=== PATIENT | male | born 1945 | race Two or more races ===

== ENCOUNTER 2018-12-19 15:31 | Emergency (ER) | payer OTHER ==
[~2018-12-19] VITALS: Ht 182.9 cm; Wt 89.4 kg
--- NOTE | 2018-12-19 15:36 | NUR ---
GRETEL FROM HOME FOR R LEG PAIN X 10 DAYS; PT AAOX4, PT ON MONITOR, VSS, NAD NOTED, PENDING MD SPENCE
[2018-12-19] MEDS ORDERED: ONDANSETRON HCL/PF 4 MG/2 ML VIAL IVP ONE (16:00)
[2018-12-19] MEDS ORDERED: ENOXAPARIN SODIUM 80 MG/0.8 ML DISP.SYRIN SQ ONE ×2 (16:00→16:13)
[2018-12-19] MEDS ORDERED: MORPHINE SULFATE INJ 2 MG/ML DISP.SYRIN IV ONE ×2 (16:00→21:00)
[2018-12-19] MEDS ORDERED: ONDANSETRON HCL/PF 4 MG/2 ML VIAL ONE (16:13)
[2018-12-19] MEDS ORDERED: MORPHINE SULFATE INJ 4 MG/ML DISP.SYRIN ONE ×2 (16:13→20:45)
[2018-12-19 16:15] LABS: BASOPHILS # (AUTO) 0.1 /CMM (0.0-0.2); BASOPHILS % (AUTO) 0.9 % (0.0-2.0); EOSINOPHILS % (AUTO) 0.3 % (0.0-6.0); HEMATOCRIT 41 % (39-51); HEMOGLOBIN 14.6 g/dL (13.5-17.5); LYMPHOCYTES # (AUTO) 1.6 /CMM (0.8-4.8); LYMPHOCYTES % (AUTO) 18.9 % (20.0-44.0); MEAN CORPUSCULAR HGB CONC 36 g/dl (31.0-36.0); MEAN CORPUSCULAR VOLUME 89 fL (80-96); MONOCYTES # (AUTO) 0.4 /CMM (0.1-1.30); MONOCYTES % (AUTO) 4.8 % (2.0-12.0); NEUTROPHILS # (AUTO) 6.4 /CMM (1.8-8.9); NEUTROPHILS % (AUTO) 75.1 % (43.0-81.0); PLATELET COUNT (AUTO) 236 /CMM (150-450); RED BLOOD CELL COUNT(AUTO) 4.61 MIL/uL (4.5-6.0); WHITE BLOOD COUNT (AUTO) 8.5 K/uL (4.3-11.0)
[2018-12-19 16:26] LABS: CALCIUM, SERUM 9.4 mg/dL (8.5-10.1); CARBON DIOXIDE 33 mmol/L (21-32); CHLORIDE 103 mmol/L (98-107); CREATININE 0.9 mg/dL (0.6-1.3); GLUCOSE 127 mg/dL (74-106); SODIUM SERUM 140 mmol/L (136-145); UREA NITROGEN, BLOOD 14 mg/dL (7-18)
--- NOTE | 2018-12-19 17:34 | NUR ---
CALLED [facility] DISCLOSURE OF HEALTH INFORMATION STAT HOT LINE, LEFT A VOICEMAIL.
--- NOTE | 2018-12-19 18:09 | NUR ---
REPORT TO NICOLE BARTHOLOMEW. PT AWAITING TRANSFER TO FLOOR.
[2018-12-19 18:30] VITALS: BP 130/63
[2018-12-19 18:47] LABS: BILIRUBIN,DIRECT 0.1 mg/dL (0.0-0.2); BILIRUBIN,TOTAL 0.5 mg/dL (0.2-1.0)
[2018-12-19] MEDS ORDERED: ACETAMINOPHEN 325 MG TABLET PO PRN (19:00)
[2018-12-19] MEDS ORDERED: MAG HYDROX/AL HYDROX/SIMETH 30 ML UDC PO PRN (19:00)
[2018-12-19] MEDS ORDERED: ZOLPIDEM TARTRATE 5 MG TABLET PO PRN (19:00)
[2018-12-19] MEDS ORDERED: MAGNESIUM HYDROXIDE 30 ML UDC PO PRN (19:00)
[2018-12-19] MEDS ORDERED: Z GUARD REMEDY 2 OZ OINT TP PRN (19:00)
[2018-12-19] MEDS ORDERED: ONDANSETRON HCL/PF 4 MG/2 ML VIAL IVP PRN (19:00)
[2018-12-19] MEDS ORDERED: HYDROCODONE/APAP 5/325MG 1 EACH TABLET PO PRN (19:00)
[2018-12-19] MEDS ORDERED: *INSULIN REGULAR(HUMULIN R)HUM 100 UNIT/ML VIAL SQ PRN (19:30)
[2018-12-19] MEDS ORDERED: MORPHINE SULFATE INJ 2 MG/ML DISP.SYRIN IV PRN (19:30)
[2018-12-19] MEDS ORDERED: PANTOPRAZOLE 40 MG TABLET.DR PO ONE (19:30)
[2018-12-19] MEDS ORDERED: INSULIN REGULAR, HUMAN 100 UNIT/ML 3 ML VIAL SQ PRN (19:30)
[2018-12-19] MEDS ORDERED: DEXTROSE 50%-WATER 50 ML DISP.SYRIN IV PRN (19:30)
--- NOTE | 2018-12-19 20:00 | NUR ---
PT TRANSPORTED TO 2ND FLOOR VIA ACLS PROTOCOL
--- NOTE | 2018-12-19 20:31 | NUR ---
PER NURSING SUP'S ORDER, PT WAS BROUGHT TO BACK TO ED BY INPATIENT NURSE D/T INSURANCE ISSUES. DR. SCHAEFER ASSUMED CARE AT THIS TIME. ALL INPATIENT ORDERS D/C'D.
[2018-12-19] MEDS ORDERED: BLOOD SUGAR DIAGNOSTIC 1 EACH STRIP VI SCH (22:00)
--- NOTE | 2018-12-19 22:10 | NUR ---
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 PT WILL BE TRANSFERRED TO MED SURG BED 4230. NUMBER FOR REPORT EXT [id number]. WILL CALL BACK WITH TRANSPORTATION INFORMATION
--- NOTE | 2018-12-19 22:43 | NUR ---
UPDATED PT REGARDING TRANSFER INFO TO [facility], PT STATES "IF THE TRANSPORT IS NOT HERE WITHIN 15MINS, I WILL LEAVE AGAINST MEDICAL ADVICE", UPDATED PT THAT TRANSPORT'S ETA IS 45, PT INSISTS ON LEAVING, PER PT, HE WILL CALL FOR A RIDE. PT SIGNED AMA FORM. PT AWARE OF RISKS, ASSISTED PT TO WAITING ROOM TO WAIT FOR RIDE. PT LEFT IN STABLE CONDITION.
--- NOTE | 2018-12-19 22:50 | NUR ---
PT LEFT THE FACILITY IN STABLE CONDITION, ASSISTED TO CAR, NAD NOTED.
--- NOTE | 2018-12-19 23:11 | NUR ---
UNABLE TO DEPART PATIENT AGAINST MEDICAL ADVICE. PT WAS PREVIOUSLY DEPARTED FOR INPATIENT ADMISSION, UNABLE TO UNDO DEPART STATUS. PT LEFT AMA, SIGNED PAPERWORK, AWARE OF RISKS OF LEAVING AMA.
== END 2018-12-19 19:38 | disposition other institution (70) ==
LOC: ER 15:34
DX: I96 Gangrene, not elsewhere classified (principal); E11.9 Type 2 diabetes mellitus without complications; I10 Essential (primary) hypertension; E78.00 Pure hypercholesterolemia, unspecified; K21.9 Gastro-esophageal reflux disease without esophagitis; Z96.649 Presence of unspecified artificial hip joint
CPT/HCPCS: 36415; 71045; 80048; 82247; 82248; 83605 ×2; 84484; 85025; 85730; 87040 ×2; 87081; 93005; 93926; 93971; 96372; 96374; 96375; 96376; 99285; J1650; J1815 ×2; J2270 ×2; J2405

== ENCOUNTER 2019-03-09 17:48 | Inpatient (IN) | payer OTHER ==
[~2019-03-09] VITALS: Ht 182.9 cm; Wt 86.2 kg
[2019-03-09] MEDS ORDERED: DEXTROSE 10% IN WATER 250 ML BAG IV ONE ×3 (17:59→20:05)
[2019-03-09] MEDS ORDERED: DEXTROSE 50%-WATER 50 ML DISP.SYRIN ONE ×3 (17:59→20:05)
[2019-03-09] MEDS ORDERED: TAMS-12 PO (18:08)
[2019-03-09] MEDS ORDERED: DILT-3 PO (18:08)
[2019-03-09] MEDS ORDERED: ESCI10TA PO (18:08)
[2019-03-09] MEDS ORDERED: POTA-88 PO (18:08)
[2019-03-09] MEDS ORDERED: DULO30CA52 PO (18:08)
[2019-03-09] MEDS ORDERED: BLOO-668 IN (18:08)
[2019-03-09] MEDS ORDERED: ALBU8.5H8 IH (18:08)
[2019-03-09] MEDS ORDERED: METO-358 PO (18:08)
[2019-03-09] MEDS ORDERED: LOSA100T31 PO (18:08)
[2019-03-09] MEDS ORDERED: INSU100I26 SQ (18:08)
[2019-03-09] MEDS ORDERED: ROSU40TA23 PO (18:08)
[2019-03-09] MEDS ORDERED: CLOP75TA15 PO (18:08)
[2019-03-09] MEDS ORDERED: INSU100I4 SQ (18:08)
[2019-03-09] MEDS ORDERED: OXYC30TA2 PO (18:08)
[2019-03-09] MEDS ORDERED: HYDR25TA4 PO (18:08)
[2019-03-09] MEDS ORDERED: ASPI-1152 PO (18:08)
[2019-03-09] MEDS ORDERED: DOXA1TAB2 PO (18:08)
[2019-03-09 18:24] LABS: BASOPHILS % (AUTO) 0.6 % (0.0-2.0); HEMATOCRIT 36 % (39-51); HEMOGLOBIN 12.1 g/dL (13.5-17.5); LYMPHOCYTES # (AUTO) 2.3 /CMM (0.8-4.8); MEAN CORPUSCULAR HGB CONC 34 g/dl (31.0-36.0); MEAN CORPUSCULAR VOLUME 91 fL (80-96); MONOCYTES # (AUTO) 0.4 /CMM (0.1-1.30); MONOCYTES % (AUTO) 6.2 % (2.0-12.0); NEUTROPHILS # (AUTO) 3.6 /CMM (1.8-8.9); NEUTROPHILS % (AUTO) 56.2 % (43.0-81.0); PLATELET COUNT (AUTO) 208 /CMM (150-450); RED BLOOD CELL COUNT(AUTO) 3.96 MIL/uL (4.5-6.0); WHITE BLOOD COUNT (AUTO) 6.4 K/uL (4.3-11.0)
[2019-03-09] MEDS ORDERED: DEXTROSE 50%-WATER 50 ML DISP.SYRIN IV ONE ×2 (18:30→19:00)
[2019-03-09 18:33] LABS: CALCIUM, SERUM 9.3 mg/dL (8.5-10.1); CARBON DIOXIDE 32 mmol/L (21-32); CHLORIDE 107 mmol/L (98-107); CREATININE 1.1 mg/dL (0.6-1.3); GLUCOSE 95 mg/dL (74-106); POTASSIUM 3.8 mmol/L (3.5-5.1); SODIUM SERUM 144 mmol/L (136-145); UREA NITROGEN, BLOOD 15 mg/dL (7-18)
[2019-03-09 18:50] LABS: SERUM AMMONIA 4 umol/L (11-32)
[2019-03-09 18:54] LABS: ALANINE AMINOTRANSFERASE 17 U/L (12-78); ALBUMIN 3.3 g/dL (3.4-5.0); ALKALINE PHOSPHATASE 121 U/L (46-116); ASPARTATE AMINOTRANSFERASE 10 U/L (15-37); BILIRUBIN,DIRECT 0.1 mg/dL (0.0-0.2); BILIRUBIN,TOTAL 0.3 mg/dL (0.2-1.0); TOTAL PROTEIN, SERUM 6.6 g/dL (6.4-8.2)
[2019-03-09] MEDS ORDERED: IV NS 0.9% 1,000 ML BAG IV ONE (19:00)
[2019-03-09] MEDS ORDERED: Sodium Chloride 77 MEQ in IV 10% DEXTROSE 1,000 ML IV PRN ×2 (19:30→23:00)
[2019-03-09] MEDS ORDERED: IV 10% DEXTROSE 1,000 ML IV STA (20:03)
[2019-03-09] MEDS ORDERED: DEXTROSE 50%-WATER 50 ML DISP.SYRIN IVP ONE (20:30)
[2019-03-09] MEDS ORDERED: ALBUTEROL FS 2.5 MG/3 ML VIAL.NEB IH PRN (22:30)
[2019-03-09 22:45] VITALS: BP 166/81
[2019-03-09] MEDS ORDERED: CLONIDINE HCL 0.1 MG TABLET PO PRN (23:00)
[2019-03-09] MEDS ORDERED: ONDANSETRON HCL/PF 4 MG/2 ML VIAL IVP PRN (23:00)
[2019-03-09] MEDS ORDERED: TEMAZEPAM 7.5 MG CAPSULE PO PRN (23:00)
[2019-03-09] MEDS ORDERED: DEXTROSE 50%-WATER 50 ML DISP.SYRIN IV PRN ×2 (23:00)
[2019-03-09] MEDS ORDERED: ACETAMINOPHEN 325 MG TABLET PO PRN (23:00)
[2019-03-09] MEDS ORDERED: HYDROCODONE/APAP 5/325MG 1 EACH TABLET PO PRN (23:00)
[2019-03-09] MEDS ORDERED: BLOOD SUGAR DIAGNOSTIC 1 EACH STRIP IN SCH (23:00)
[2019-03-09] MEDS ORDERED: INSULIN REGULAR, HUMAN 100 UNIT/ML 3 ML VIAL SQ PRN (23:00)
[2019-03-09] MEDS: BLOOD SUGAR DIAGNOSTIC 1 EACH STRIP IN SCH (23:55)
[2019-03-09] MEDS: INSULIN REGULAR, HUMAN 100 UNIT/ML 3 ML VIAL SQ PRN (23:56)
[2019-03-10] VITALS: BP 165/88
[2019-03-10] MEDS ORDERED: IV 10% DEXTROSE 1,000 ML IV PRN
[2019-03-10] MEDS: BLOOD SUGAR DIAGNOSTIC 1 EACH STRIP IN SCH ×6 (01:24→21:17)
[2019-03-10] MEDS: INSULIN REGULAR, HUMAN 100 UNIT/ML 3 ML VIAL SQ PRN ×5 (01:25→21:19)
[2019-03-10 08:00] VITALS: BP_SYST 140; BP_SYST 155; BP_DIAS 72; BP_DIAS 81
[2019-03-10] MEDS: PANTOPRAZOLE 40 MG TABLET.DR PO SCH (08:24)
[2019-03-10] MEDS: oxyCODONE IR immediate release 5 MG PO PRN ×2 (08:50→20:43)
[2019-03-10] MEDS: HYDROCHLOROTHIAZIDE 25 MG TABLET PO SCH (08:51)
[2019-03-10] MEDS: POTASSIUM CHLORIDE 20 MEQ TAB.PRT.SR PO SCH (08:51)
[2019-03-10] MEDS: DILTIAZEM HCL CD 240 MG PO SCH (08:51)
[2019-03-10] MEDS: ESCITALOPRAM OXALATE (10 MG) 10 MG TABLET PO SCH (08:51)
[2019-03-10] MEDS: LOSARTAN POTASSIUM 50 MG TABLET PO SCH (08:52)
[2019-03-10] MEDS: ATORVASTATIN 40 MG TABLET PO SCH (08:52)
[2019-03-10] MEDS: DOCUSATE SODIUM 100 MG CAPSULE PO SCH ×2 (08:52→17:05)
[2019-03-10] MEDS: METOPROLOL SUCCINATE 50 MG TAB.SR.24H PO SCH (08:52)
[2019-03-10] MEDS: DULOXETINE HCL 30 MG CAPSULE.DR PO SCH ×2 (08:53→17:05)
[2019-03-10] MEDS: ASPIRIN EC 81 MG TABLET.DR PO SCH (08:53)
[2019-03-10] MEDS: CLOPIDOGREL BISULFATE 75 MG TABLET PO SCH (08:53)
[2019-03-10 12:00] VITALS: BP_SYST 155; BP_SYST 156; BP_DIAS 72; BP_DIAS 75
[2019-03-10 13:44] LABS: BASOPHILS # (AUTO) 0.1 /CMM (0.0-0.2); EOSINOPHILS % (AUTO) 1.5 % (0.0-6.0); HEMATOCRIT 39 % (39-51); HEMOGLOBIN 13.1 g/dL (13.5-17.5); LYMPHOCYTES # (AUTO) 2.3 /CMM (0.8-4.8); LYMPHOCYTES % (AUTO) 26.8 % (20.0-44.0); MEAN CORPUSCULAR HGB CONC 34 g/dl (31.0-36.0); MEAN CORPUSCULAR VOLUME 90 fL (80-96); MONOCYTES # (AUTO) 0.5 /CMM (0.1-1.30); MONOCYTES % (AUTO) 5.5 % (2.0-12.0); NEUTROPHILS # (AUTO) 5.6 /CMM (1.8-8.9); NEUTROPHILS % (AUTO) 65.2 % (43.0-81.0); PLATELET COUNT (AUTO) 203 /CMM (150-450); RED BLOOD CELL COUNT(AUTO) 4.31 MIL/uL (4.5-6.0); WHITE BLOOD COUNT (AUTO) 8.6 K/uL (4.3-11.0)
[2019-03-10 14:05] LABS: IRON, SERUM 44 ug/dl (50-175); TOTAL IRON BINDING CAPACITY 184 ug/dl (250-450)
[2019-03-10 14:09] LABS: ALANINE AMINOTRANSFERASE 15 U/L (12-78); ALBUMIN 3.2 g/dL (3.4-5.0); ALKALINE PHOSPHATASE 118 U/L (46-116); ASPARTATE AMINOTRANSFERASE 7 U/L (15-37); BILIRUBIN,TOTAL 0.4 mg/dL (0.2-1.0); CALCIUM, SERUM 8.9 mg/dL (8.5-10.1); CARBON DIOXIDE 28 mmol/L (21-32); CHLORIDE 101 mmol/L (98-107); CREATININE 0.9 mg/dL (0.6-1.3); GLUCOSE 253 mg/dL (74-106); MAGNESIUM 1.6 mg/dL (1.8-2.4); PHOSPHORUS 3.2 mg/dL (2.5-4.9); POTASSIUM 4.1 mmol/L (3.5-5.1); SODIUM SERUM 137 mmol/L (136-145); TOTAL PROTEIN, SERUM 6.7 g/dL (6.4-8.2); UREA NITROGEN, BLOOD 11 mg/dL (7-18)
[2019-03-10 14:20] LABS: CHOLESTEROL 137 mg/dL (<200); HDL CHOLESTEROL 43 mg/dL (40-60); LDL 81 mg/dL (0-99); PROSTATE SPECIFIC ANTIGEN SCR 0.93 ng/mL (0.00-4.00); TRIGLYCERIDES 83 mg/dL (30-150)
[2019-03-10] MEDS ORDERED: IV NS 0.9% 1,000 ML BAG IV ONE (15:00)
[2019-03-10] MEDS ORDERED: IV NS 0.9% 1,000 ML IV ONE ×2 (15:00→19:00)
[2019-03-10 16:00] VITALS: BP 159/72
[2019-03-10 20:00] VITALS: BP 164/70
[2019-03-10] MEDS: DOXAZOSIN MESYLATE (1 MG) 1 MG TABLET PO SCH (21:16)
[2019-03-10] MEDS: TAMSULOSIN 0.4 MG CAP.SR.24H PO SCH (21:17)
[2019-03-11] VITALS: BP 133/52
[2019-03-11] MEDS: BLOOD SUGAR DIAGNOSTIC 1 EACH STRIP IN SCH ×6 (01:24→21:14)
[2019-03-11] MEDS: INSULIN REGULAR, HUMAN 100 UNIT/ML 3 ML VIAL SQ PRN ×6 (01:25→21:19)
[2019-03-11 04:00] VITALS: BP 139/70
[2019-03-11 06:24] LABS: BASOPHILS % (AUTO) 0.6 % (0.0-2.0); EOSINOPHILS % (AUTO) 1.5 % (0.0-6.0); HEMATOCRIT 34 % (39-51); HEMOGLOBIN 11.8 g/dL (13.5-17.5); LYMPHOCYTES # (AUTO) 1.9 /CMM (0.8-4.8); LYMPHOCYTES % (AUTO) 28.2 % (20.0-44.0); MEAN CORPUSCULAR HGB CONC 35 g/dl (31.0-36.0); MEAN CORPUSCULAR VOLUME 89 fL (80-96); MONOCYTES # (AUTO) 0.3 /CMM (0.1-1.30); MONOCYTES % (AUTO) 4.8 % (2.0-12.0); NEUTROPHILS # (AUTO) 4.4 /CMM (1.8-8.9); NEUTROPHILS % (AUTO) 64.9 % (43.0-81.0); PLATELET COUNT (AUTO) 182 /CMM (150-450); RED BLOOD CELL COUNT(AUTO) 3.83 MIL/uL (4.5-6.0); WHITE BLOOD COUNT (AUTO) 6.7 K/uL (4.3-11.0)
[2019-03-11 06:45] LABS: CALCIUM, SERUM 8.6 mg/dL (8.5-10.1); CARBON DIOXIDE 27 mmol/L (21-32); CHLORIDE 104 mmol/L (98-107); CREATININE 0.7 mg/dL (0.6-1.3); GLUCOSE 162 mg/dL (74-106); MAGNESIUM 1.6 mg/dL (1.8-2.4); PHOSPHORUS 3.5 mg/dL (2.5-4.9); POTASSIUM 3.8 mmol/L (3.5-5.1); SODIUM SERUM 139 mmol/L (136-145); UREA NITROGEN, BLOOD 7 mg/dL (7-18)
[2019-03-11 08:00] VITALS: BP 148/72
[2019-03-11] MEDS: HYDROCHLOROTHIAZIDE 25 MG TABLET PO SCH (08:24)
[2019-03-11] MEDS: ESCITALOPRAM OXALATE (10 MG) 10 MG TABLET PO SCH ×3 (08:25→09:00)
[2019-03-11] MEDS: POTASSIUM CHLORIDE 20 MEQ TAB.PRT.SR PO SCH (08:25)
[2019-03-11] MEDS: DILTIAZEM HCL CD 240 MG PO SCH (08:25)
[2019-03-11] MEDS: ASPIRIN EC 81 MG TABLET.DR PO SCH (08:26)
[2019-03-11] MEDS: METOPROLOL SUCCINATE 50 MG TAB.SR.24H PO SCH (08:26)
[2019-03-11] MEDS: ATORVASTATIN 40 MG TABLET PO SCH (08:26)
[2019-03-11] MEDS: DOCUSATE SODIUM 100 MG CAPSULE PO SCH ×2 (08:26→17:01)
[2019-03-11] MEDS: DULOXETINE HCL 30 MG CAPSULE.DR PO SCH ×4 (08:26→17:01)
[2019-03-11] MEDS: LOSARTAN POTASSIUM 50 MG TABLET PO SCH (08:27)
[2019-03-11] MEDS: PANTOPRAZOLE 40 MG TABLET.DR PO SCH (08:27)
[2019-03-11] MEDS: CLOPIDOGREL BISULFATE 75 MG TABLET PO SCH (08:27)
[2019-03-11] MEDS: oxyCODONE IR immediate release 5 MG PO PRN ×2 (08:42→18:40)
[2019-03-11] MEDS ORDERED: Magnesium 1GM/D5W 100ML PREMIX 100 ML IV SCH (09:50)
[2019-03-11] MEDS ORDERED: IV NS 0.9% 250 ML IV PRN (10:30)
[2019-03-11] MEDS ORDERED: MAGNESIUM OXIDE 400 MG TABLET PO ONE (11:00)
[2019-03-11 16:00] VITALS: BP 148/68
[2019-03-11 18:08] LABS: APPEARANCE,URINE CLEAR (CLEAR); BILIRUBIN,URINE NEGATIVE (NEGATIVE); BLOOD, URINE NEGATIVE Ery/uL (NEGATIVE); KETONES,URINE NEGATIVE (NEGATIVE); LEUKOCYTE ESTERASE ,URINE NEGATIVE (NEGATIVE); NITRITE, URINE NEGATIVE (NEGATIVE); PROTEIN,URINE NEGATIVE (NEGATIVE); UGLUCOSE 2+ mg/dL (NEGATIVE); UROBILINOGEN,URINE 0.2 EU/dL (0.2)
[2019-03-11 18:13] LABS: COLOR,URINE Light yellow (YELLOW)
[2019-03-11 18:46] LABS: BACTERIA,URINE Rare /HPF (None Seen); RBC,URINE NONE SEEN /HPF (0-2); SQUAMOUS EPITHELIAL CELL,UR Rare /HPF (None Seen); WBC,URINE 0-2 /HPF (0-3)
[2019-03-11 20:00] VITALS: BP 143/67
[2019-03-11] MEDS: TAMSULOSIN 0.4 MG CAP.SR.24H PO SCH (21:09)
[2019-03-11] MEDS: DOXAZOSIN MESYLATE (1 MG) 1 MG TABLET PO SCH (21:10)
[2019-03-12] MEDS: BLOOD SUGAR DIAGNOSTIC 1 EACH STRIP IN SCH ×3 (00:53→08:40)
[2019-03-12 04:00] VITALS: BP 141/67
[2019-03-12] MEDS: INSULIN REGULAR, HUMAN 100 UNIT/ML 3 ML VIAL SQ PRN ×2 (05:38→08:44)
[2019-03-12 06:31] LABS: BASOPHILS % (AUTO) 0.2 % (0.0-2.0); EOSINOPHILS % (AUTO) 1.3 % (0.0-6.0); HEMATOCRIT 35 % (39-51); HEMOGLOBIN 12.1 g/dL (13.5-17.5); LYMPHOCYTES % (AUTO) 35.5 % (20.0-44.0); MEAN CORPUSCULAR HGB CONC 35 g/dl (31.0-36.0); MEAN CORPUSCULAR VOLUME 89 fL (80-96); MONOCYTES # (AUTO) 0.3 /CMM (0.1-1.30); NEUTROPHILS # (AUTO) 3.2 /CMM (1.8-8.9); PLATELET COUNT (AUTO) 172 /CMM (150-450); RED BLOOD CELL COUNT(AUTO) 3.93 MIL/uL (4.5-6.0); WHITE BLOOD COUNT (AUTO) 5.6 K/uL (4.3-11.0)
[2019-03-12 06:56] LABS: CALCIUM, SERUM 9.1 mg/dL (8.5-10.1); CARBON DIOXIDE 28 mmol/L (21-32); CHLORIDE 103 mmol/L (98-107); CREATININE 0.8 mg/dL (0.6-1.3); GLUCOSE 196 mg/dL (74-106); MAGNESIUM 1.7 mg/dL (1.8-2.4); PHOSPHORUS 3.4 mg/dL (2.5-4.9); SODIUM SERUM 138 mmol/L (136-145); UREA NITROGEN, BLOOD 11 mg/dL (7-18)
[2019-03-12 08:00] VITALS: BP 145/64
[2019-03-12] MEDS ORDERED: MAGNESIUM OXIDE 400 MG TABLET PO ONE (08:30)
[2019-03-12] MEDS: CLOPIDOGREL BISULFATE 75 MG TABLET PO SCH (08:36)
[2019-03-12] MEDS: ESCITALOPRAM OXALATE (10 MG) 10 MG TABLET PO SCH ×2 (08:36→08:51)
[2019-03-12] MEDS: DULOXETINE HCL 30 MG CAPSULE.DR PO SCH ×2 (08:37→08:48)
[2019-03-12] MEDS: DOCUSATE SODIUM 100 MG CAPSULE PO SCH (08:37)
[2019-03-12] MEDS: ATORVASTATIN 40 MG TABLET PO SCH (08:38)
[2019-03-12] MEDS: POTASSIUM CHLORIDE 20 MEQ TAB.PRT.SR PO SCH (08:38)
[2019-03-12] MEDS: DILTIAZEM HCL CD 240 MG PO SCH (08:38)
[2019-03-12] MEDS: LOSARTAN POTASSIUM 50 MG TABLET PO SCH (08:39)
[2019-03-12] MEDS: ASPIRIN EC 81 MG TABLET.DR PO SCH (08:39)
[2019-03-12] MEDS: HYDROCHLOROTHIAZIDE 25 MG TABLET PO SCH (08:40)
[2019-03-12] MEDS: PANTOPRAZOLE 40 MG TABLET.DR PO SCH (08:44)
[2019-03-12 08:45] VITALS: BP 145/64
[2019-03-12] MEDS: METOPROLOL SUCCINATE 50 MG TAB.SR.24H PO SCH (08:45)
[2019-03-12] MEDS: oxyCODONE IR immediate release 5 MG PO PRN (09:00)
== END 2019-03-12 14:30 | disposition home or self-care (01) | DRG 917 ==
LOC: ER 17:53 → TELE1 21:43 → TELE-TD 22:33 → MEDSG1 03-11 10:50
PROVIDERS: ADMIT Internal Medicine; ATTEND Hospitalist
DX: T38.3X1A Poisoning by insulin and oral hypoglycemic [antidiabetic] drugs, accidental (unintentional), initial encounter (principal); G93.41 Metabolic encephalopathy; D68.59 Other primary thrombophilia; L97.429 Non-pressure chronic ulcer of left heel and midfoot with unspecified severity; E87.2 Acidosis; E11.649 Type 2 diabetes mellitus with hypoglycemia without coma; E78.5 Hyperlipidemia, unspecified; I10 Essential (primary) hypertension; K21.9 Gastro-esophageal reflux disease without esophagitis; E11.40 Type 2 diabetes mellitus with diabetic neuropathy, unspecified; E11.51 Type 2 diabetes mellitus with diabetic peripheral angiopathy without gangrene; E11.621 Type 2 diabetes mellitus with foot ulcer; Z96.641 Presence of right artificial hip joint; Z87.891 Personal history of nicotine dependence; Z79.02 Long term (current) use of antithrombotics/antiplatelets; N40.0 Benign prostatic hyperplasia without lower urinary tract symptoms; Z79.51 Long term (current) use of inhaled steroids; Z79.4 Long term (current) use of insulin; Z79.899 Other long term (current) drug therapy; Z79.52 Long term (current) use of systemic steroids; Y92.009 Unspecified place in unspecified non-institutional (private) residence as the place of occurrence of the external cause; Z98.890 Other specified postprocedural states; Z89.411 Acquired absence of right great toe; Z74.09 Other reduced mobility; D64.9 Anemia, unspecified; E83.42 Hypomagnesemia; I70.203 Unspecified atherosclerosis of native arteries of extremities, bilateral legs
CPT/HCPCS: 36415; 71045-TC; 80048-TC; 80053-TC; 80061-TC; 80076-TC; 81000-TC; 82140-TC; 82962-TC; 83540-TC; 83605-TC; 83735-TC; 84100-TC; 84153-TC; 84443-TC; 84484-TC; 85025-TC; 85652-TC; 85730-TC; 87040-TC; 87081-TC; 87086-TC; 93970-TC; 97530-TC; G0378; J1815; J3475; J3490; J7030; J7050